=== PATIENT | female | born 1960 | race African-American/Black ===

== ENCOUNTER 2022-01-08 10:07 | Inpatient (IN) | payer OTHER ==
[2022-01-08 10:40] VITALS: BMI 24.5
[2022-01-08] MEDS ORDERED: MAGNESIUM CITRATE 300 ML BOTTLE PO PRN (11:37)
[2022-01-08] MEDS ORDERED: guaiFENesin 200 MG/10 ML 10 ML UNIT-DOSE CUPS PO PRN (11:37)
[2022-01-08] MEDS ORDERED: P-EPHED 60MG/TRIPROLIDI 2.5MG TABLET PO PRN (11:37)
[2022-01-08] MEDS ORDERED: MAGNESIUM HYDROX 2400MG/30ML ORAL SUSPENSION 30 ML CUP PO PRN (11:37)
[2022-01-08] MEDS ORDERED: NICOTINE 10 MG CARTRIDGE (INHALER) IH PRN (11:37)
[2022-01-08] MEDS ORDERED: LOPERAMIDE HCL 2 MG CAPSULE PO PRN (11:37)
[2022-01-08 16:35] LABS: CALCIUM 9.4 mg/dL (8.5-10.1)
[2022-01-08 16:38] LABS: ALBUMIN 3.8 g/dl (3.4-5.0)
[2022-01-08 16:40] LABS: BILIRUBIN,TOTAL 0.4 mg/dL (0.2-1); TOT PROT 7.1 g/dl (6.4-8.2)
[2022-01-08 16:45] LABS: HEMOGLOBIN 13.9 GM/dL (10.7-15.3); MCH 27.4 pg (25.7-33.7); MCHC 31.6 g/dl (32.0-36.0); MEAN CELL VOLUME 86.5 fl (80-96); MEAN PLT VOLUME 10.9 fl (7.5-11.1); PLATELET COUNT 201 10^3/uL (134-434); RBC 5.08 M/mm3 (3.60-5.2); RDW 15.3 % (11.6-15.6)
[2022-01-08 16:50] LABS: SYPHILIS W/ RPR CONF NON-REACTIVE (NONREACTIVE)
[2022-01-08] MEDS: hydrOXYzine PAMOATE 25 MG CAPSULE (FP) PO SCH ×3 (17:22→21:29)
[2022-01-08] MEDS: NICOTINE 7 MG/24 HOURS TOPICAL PATCH TD SCH (17:22)
[2022-01-08] MEDS: PRENATAL VITAMINS W/ FOLIC ACID TABLET (FP) PO SCH (17:22)
[2022-01-08] MEDS: metoPROLOL SUCCINATE 25 MG TAB.SR.24H (FP) PO SCH (17:33)
[2022-01-08] MEDS: ALBUTEROL SO4 HFA INHALER IH SCH ×2 (17:34→21:42)
[2022-01-08] MEDS: IBUPROFEN 400 MG TABLET (FP) PO PRN (21:29)
[2022-01-08] MEDS: THIAMINE HCL 100 MG TABLET (FP) PO SCH (21:29)
[2022-01-08] MEDS: MELATONIN 5 MG TABLETS PO SCH (21:43)
[2022-01-08] MEDS: BUDESONIDE/FORMETEROL FUMARATE 160/4.5 mcg INHALER IH SCH (21:43)
[2022-01-09] MEDS: hydrOXYzine PAMOATE 25 MG CAPSULE (FP) PO SCH ×2 (06:25→10:24)
[2022-01-09] MEDS: ALBUTEROL SO4 HFA INHALER IH SCH ×3 (06:30→12:19)
[2022-01-09] MEDS ORDERED: PATIENT'S OWN MEDICATION (NON-FORMULARY) (Fexofenadine Hcl [Allegra Allergy] 180 MG Tablet PO SCH (10:00)
[2022-01-09] MEDS: LORATADINE 10 MG TABLET PO SCH (10:23)
[2022-01-09] MEDS: metoPROLOL SUCCINATE 25 MG TAB.SR.24H (FP) PO SCH (10:23)
[2022-01-09] MEDS: PRENATAL VITAMINS W/ FOLIC ACID TABLET (FP) PO SCH (10:23)
[2022-01-09] MEDS: BUDESONIDE/FORMETEROL FUMARATE 160/4.5 mcg INHALER IH SCH ×2 (10:24→21:36)
[2022-01-09] MEDS: NICOTINE 7 MG/24 HOURS TOPICAL PATCH TD SCH (10:25)
[2022-01-09] MEDS: IBUPROFEN 400 MG TABLET (FP) PO PRN (12:16)
[2022-01-09] MEDS ORDERED: ALBUTEROL SO4 HFA INHALER IH PRN (12:28)
[2022-01-09] MEDS: ACETAMINOPHEN 325 MG TABLET (FP) PO PRN (20:18)
[2022-01-09] MEDS: THIAMINE HCL 100 MG TABLET (FP) PO SCH (21:35)
[2022-01-09] MEDS: MELATONIN 5 MG TABLETS PO SCH (21:36)
[2022-01-10] MEDS: PRENATAL VITAMINS W/ FOLIC ACID TABLET (FP) PO SCH (10:25)
[2022-01-10] MEDS: metoPROLOL SUCCINATE 25 MG TAB.SR.24H (FP) PO SCH (10:26)
[2022-01-10] MEDS: LORATADINE 10 MG TABLET PO SCH (10:26)
[2022-01-10] MEDS: NICOTINE 7 MG/24 HOURS TOPICAL PATCH TD SCH (10:26)
[2022-01-10] MEDS: amLODIPine BESYLATE 5 MG TABLET (FP) PO SCH (10:26)
[2022-01-10] MEDS: BUDESONIDE/FORMETEROL FUMARATE 160/4.5 mcg INHALER IH SCH ×2 (10:26→21:27)
[2022-01-10] MEDS: hydrOXYzine PAMOATE 25 MG CAPSULE (FP) PO PRN (10:28)
[2022-01-10] MEDS: ACETAMINOPHEN 325 MG TABLET (FP) PO PRN (10:29)
[2022-01-10] MEDS: BACLOFEN 10 MG TABLET (FP) PO PRN (14:54)
[2022-01-10] MEDS: GABAPENTIN 300 MG CAPSULE PO SCH ×2 (14:55→21:26)
[2022-01-10] MEDS: CROMOLYN SODIUM 4% OPHTH DROPS 10 ML BOTTLE OU SCH ×2 (17:04→21:28)
[2022-01-10] MEDS: THIAMINE HCL 100 MG TABLET (FP) PO SCH (21:26)
[2022-01-10] MEDS: MELATONIN 5 MG TABLETS PO SCH (21:27)
[2022-01-10] MEDS: CARBAMIDE PEROXIDE 6.5% OTIC 15 ML BOTTLE AS SCH (21:29)
[2022-01-10] MEDS: FAMOTIDINE 20 MG TABLET PO SCH (21:31)
[2022-01-11] MEDS: GABAPENTIN 300 MG CAPSULE PO SCH ×3 (06:20→21:33)
[2022-01-11] MEDS: FAMOTIDINE 20 MG TABLET PO SCH ×2 (10:12→21:33)
[2022-01-11] MEDS: metoPROLOL SUCCINATE 25 MG TAB.SR.24H (FP) PO SCH (10:12)
[2022-01-11] MEDS: BUDESONIDE/FORMETEROL FUMARATE 160/4.5 mcg INHALER IH SCH ×2 (10:12→21:34)
[2022-01-11] MEDS: PRENATAL VITAMINS W/ FOLIC ACID TABLET (FP) PO SCH (10:12)
[2022-01-11] MEDS: amLODIPine BESYLATE 5 MG TABLET (FP) PO SCH (10:12)
[2022-01-11] MEDS: LORATADINE 10 MG TABLET PO SCH (10:12)
[2022-01-11] MEDS: NICOTINE 7 MG/24 HOURS TOPICAL PATCH TD SCH (10:13)
[2022-01-11] MEDS: BACLOFEN 10 MG TABLET (FP) PO PRN (10:17)
[2022-01-11] MEDS: CARBAMIDE PEROXIDE 6.5% OTIC 15 ML BOTTLE AS SCH ×2 (10:18→21:35)
[2022-01-11] MEDS: CROMOLYN SODIUM 4% OPHTH DROPS 10 ML BOTTLE OU SCH ×4 (10:18→21:36)
[2022-01-11] MEDS: THIAMINE HCL 100 MG TABLET (FP) PO SCH (21:33)
[2022-01-11] MEDS: MELATONIN 5 MG TABLETS PO SCH (21:34)
[2022-01-11] MEDS: hydrOXYzine PAMOATE 25 MG CAPSULE (FP) PO PRN (21:35)
[2022-01-12] MEDS: GABAPENTIN 300 MG CAPSULE PO SCH ×3 (06:19→21:32)
[2022-01-12] MEDS: metoPROLOL SUCCINATE 25 MG TAB.SR.24H (FP) PO SCH (10:01)
[2022-01-12] MEDS: FAMOTIDINE 20 MG TABLET PO SCH ×2 (10:01→21:32)
[2022-01-12] MEDS: amLODIPine BESYLATE 5 MG TABLET (FP) PO SCH (10:01)
[2022-01-12] MEDS: LORATADINE 10 MG TABLET PO SCH (10:01)
[2022-01-12] MEDS: PRENATAL VITAMINS W/ FOLIC ACID TABLET (FP) PO SCH (10:01)
[2022-01-12] MEDS: BUDESONIDE/FORMETEROL FUMARATE 160/4.5 mcg INHALER IH SCH ×2 (10:02→21:34)
[2022-01-12] MEDS: NICOTINE 7 MG/24 HOURS TOPICAL PATCH TD SCH (10:02)
[2022-01-12] MEDS: CARBAMIDE PEROXIDE 6.5% OTIC 15 ML BOTTLE AS SCH ×2 (10:03→21:33)
[2022-01-12] MEDS: CROMOLYN SODIUM 4% OPHTH DROPS 10 ML BOTTLE OU SCH ×4 (10:05→21:33)
[2022-01-12] MEDS: THIAMINE HCL 100 MG TABLET (FP) PO SCH (21:32)
[2022-01-12] MEDS: QUEtiapine FUMARATE 50 MG TABLET PO SCH (21:32)
[2022-01-12] MEDS: hydrOXYzine PAMOATE 25 MG CAPSULE (FP) PO PRN (21:32)
[2022-01-12] MEDS ORDERED: SUVOREXANT 5 MG TABLET PO PRN (22:00)
[2022-01-13] MEDS: GABAPENTIN 300 MG CAPSULE PO SCH ×3 (06:12→21:50)
[2022-01-13] MEDS: PRENATAL VITAMINS W/ FOLIC ACID TABLET (FP) PO SCH (10:05)
[2022-01-13] MEDS: FAMOTIDINE 20 MG TABLET PO SCH ×2 (10:06→21:50)
[2022-01-13] MEDS: LORATADINE 10 MG TABLET PO SCH (10:06)
[2022-01-13] MEDS: metoPROLOL SUCCINATE 25 MG TAB.SR.24H (FP) PO SCH (10:06)
[2022-01-13] MEDS: NICOTINE 7 MG/24 HOURS TOPICAL PATCH TD SCH (10:06)
[2022-01-13] MEDS: QUEtiapine FUMARATE 50 MG TABLET PO SCH ×2 (10:06→21:50)
[2022-01-13] MEDS: BUDESONIDE/FORMETEROL FUMARATE 160/4.5 mcg INHALER IH SCH ×2 (10:06→22:18)
[2022-01-13] MEDS: amLODIPine BESYLATE 5 MG TABLET (FP) PO SCH (10:06)
[2022-01-13] MEDS: CROMOLYN SODIUM 4% OPHTH DROPS 10 ML BOTTLE OU SCH ×4 (10:07→22:16)
[2022-01-13] MEDS: CARBAMIDE PEROXIDE 6.5% OTIC 15 ML BOTTLE AS SCH ×2 (10:07→22:16)
[2022-01-13] MEDS: THIAMINE HCL 100 MG TABLET (FP) PO SCH (21:50)
[2022-01-13] MEDS: hydrOXYzine PAMOATE 25 MG CAPSULE (FP) PO PRN (21:50)
[2022-01-14] MEDS: GABAPENTIN 300 MG CAPSULE PO SCH ×3 (06:09→21:54)
[2022-01-14] MEDS: amLODIPine BESYLATE 5 MG TABLET (FP) PO SCH (10:13)
[2022-01-14] MEDS: LORATADINE 10 MG TABLET PO SCH (10:13)
[2022-01-14] MEDS: BUDESONIDE/FORMETEROL FUMARATE 160/4.5 mcg INHALER IH SCH ×2 (10:13→23:22)
[2022-01-14] MEDS: metoPROLOL SUCCINATE 25 MG TAB.SR.24H (FP) PO SCH (10:13)
[2022-01-14] MEDS: PRENATAL VITAMINS W/ FOLIC ACID TABLET (FP) PO SCH (10:13)
[2022-01-14] MEDS: CROMOLYN SODIUM 4% OPHTH DROPS 10 ML BOTTLE OU SCH ×4 (10:13→23:22)
[2022-01-14] MEDS: BACLOFEN 10 MG TABLET (FP) PO PRN (10:13)
[2022-01-14] MEDS: QUEtiapine FUMARATE 50 MG TABLET PO SCH ×2 (10:13→21:54)
[2022-01-14] MEDS: FAMOTIDINE 20 MG TABLET PO SCH ×2 (10:13→21:54)
[2022-01-14] MEDS: NICOTINE 7 MG/24 HOURS TOPICAL PATCH TD SCH (10:14)
[2022-01-14] MEDS: CARBAMIDE PEROXIDE 6.5% OTIC 15 ML BOTTLE AS SCH ×2 (10:15→23:22)
[2022-01-14] MEDS: THIAMINE HCL 100 MG TABLET (FP) PO SCH (21:54)
[2022-01-14] MEDS: hydrOXYzine PAMOATE 25 MG CAPSULE (FP) PO PRN (21:54)
[2022-01-15] MEDS: GABAPENTIN 300 MG CAPSULE PO SCH ×3 (06:05→21:37)
[2022-01-15] MEDS: FAMOTIDINE 20 MG TABLET PO SCH ×2 (10:50→21:37)
[2022-01-15] MEDS: BUDESONIDE/FORMETEROL FUMARATE 160/4.5 mcg INHALER IH SCH ×2 (10:50→21:37)
[2022-01-15] MEDS: QUEtiapine FUMARATE 50 MG TABLET PO SCH (10:50)
[2022-01-15] MEDS: amLODIPine BESYLATE 5 MG TABLET (FP) PO SCH (10:50)
[2022-01-15] MEDS: LORATADINE 10 MG TABLET PO SCH (10:51)
[2022-01-15] MEDS: metoPROLOL SUCCINATE 25 MG TAB.SR.24H (FP) PO SCH (10:51)
[2022-01-15] MEDS: PRENATAL VITAMINS W/ FOLIC ACID TABLET (FP) PO SCH (10:51)
[2022-01-15] MEDS: NICOTINE 7 MG/24 HOURS TOPICAL PATCH TD SCH (10:51)
[2022-01-15] MEDS: CROMOLYN SODIUM 4% OPHTH DROPS 10 ML BOTTLE OU SCH ×4 (10:52→21:42)
[2022-01-15] MEDS: CARBAMIDE PEROXIDE 6.5% OTIC 15 ML BOTTLE AS SCH (10:52)
[2022-01-15] MEDS: THIAMINE HCL 100 MG TABLET (FP) PO SCH (21:37)
[2022-01-15] MEDS: QUEtiapine FUMARATE 100 MG TABLET (FP) PO SCH (21:38)
[2022-01-15] MEDS: SUVOREXANT 5 MG TABLET PO PRN (21:39)
[2022-01-16] MEDS: GABAPENTIN 300 MG CAPSULE PO SCH ×3 (06:27→21:23)
[2022-01-16] MEDS: PRENATAL VITAMINS W/ FOLIC ACID TABLET (FP) PO SCH (10:13)
[2022-01-16] MEDS: CROMOLYN SODIUM 4% OPHTH DROPS 10 ML BOTTLE OU SCH ×4 (10:14→21:24)
[2022-01-16] MEDS: amLODIPine BESYLATE 5 MG TABLET (FP) PO SCH (10:14)
[2022-01-16] MEDS: NICOTINE 7 MG/24 HOURS TOPICAL PATCH TD SCH (10:14)
[2022-01-16] MEDS: BUDESONIDE/FORMETEROL FUMARATE 160/4.5 mcg INHALER IH SCH ×2 (10:14→21:23)
[2022-01-16] MEDS: LORATADINE 10 MG TABLET PO SCH (10:15)
[2022-01-16] MEDS: metoPROLOL SUCCINATE 25 MG TAB.SR.24H (FP) PO SCH (10:15)
[2022-01-16] MEDS: QUEtiapine FUMARATE 100 MG TABLET (FP) PO SCH ×2 (10:15→21:23)
[2022-01-16] MEDS: FAMOTIDINE 20 MG TABLET PO SCH ×2 (10:15→21:23)
[2022-01-16] MEDS: THIAMINE HCL 100 MG TABLET (FP) PO SCH (21:23)
[2022-01-16] MEDS: SUVOREXANT 5 MG TABLET PO PRN (21:26)
[2022-01-17] MEDS: GABAPENTIN 300 MG CAPSULE PO SCH ×3 (06:38→21:49)
[2022-01-17] MEDS: CROMOLYN SODIUM 4% OPHTH DROPS 10 ML BOTTLE OU SCH ×4 (10:25→22:06)
[2022-01-17] MEDS: QUEtiapine FUMARATE 100 MG TABLET (FP) PO SCH ×2 (10:25→21:49)
[2022-01-17] MEDS: metoPROLOL SUCCINATE 25 MG TAB.SR.24H (FP) PO SCH (10:25)
[2022-01-17] MEDS: PRENATAL VITAMINS W/ FOLIC ACID TABLET (FP) PO SCH (10:25)
[2022-01-17] MEDS: BUDESONIDE/FORMETEROL FUMARATE 160/4.5 mcg INHALER IH SCH ×2 (10:25→22:06)
[2022-01-17] MEDS: FAMOTIDINE 20 MG TABLET PO SCH ×2 (10:26→21:49)
[2022-01-17] MEDS: LORATADINE 10 MG TABLET PO SCH (10:26)
[2022-01-17] MEDS: amLODIPine BESYLATE 5 MG TABLET (FP) PO SCH (10:26)
[2022-01-17] MEDS: NICOTINE 7 MG/24 HOURS TOPICAL PATCH TD SCH (10:26)
[2022-01-17] MEDS: THIAMINE HCL 100 MG TABLET (FP) PO SCH (21:49)
[2022-01-17] MEDS: SUVOREXANT 5 MG TABLET PO PRN (21:52)
[2022-01-18] MEDS: GABAPENTIN 300 MG CAPSULE PO SCH ×3 (06:04→21:48)
[2022-01-18 07:09] VITALS: RESP 18
[2022-01-18] MEDS: amLODIPine BESYLATE 5 MG TABLET (FP) PO SCH (10:28)
[2022-01-18] MEDS: LORATADINE 10 MG TABLET PO SCH (10:28)
[2022-01-18] MEDS: FAMOTIDINE 20 MG TABLET PO SCH ×2 (10:28→21:49)
[2022-01-18] MEDS: metoPROLOL SUCCINATE 25 MG TAB.SR.24H (FP) PO SCH (10:28)
[2022-01-18] MEDS: PRENATAL VITAMINS W/ FOLIC ACID TABLET (FP) PO SCH (10:28)
[2022-01-18] MEDS: BUDESONIDE/FORMETEROL FUMARATE 160/4.5 mcg INHALER IH SCH ×2 (10:29→21:50)
[2022-01-18] MEDS: NICOTINE 7 MG/24 HOURS TOPICAL PATCH TD SCH (10:29)
[2022-01-18] MEDS: QUEtiapine FUMARATE 100 MG TABLET (FP) PO SCH ×2 (10:29→21:48)
[2022-01-18] MEDS: CROMOLYN SODIUM 4% OPHTH DROPS 10 ML BOTTLE OU SCH ×4 (10:31→22:13)
[2022-01-18] MEDS: hydrOXYzine PAMOATE 25 MG CAPSULE (FP) PO PRN (21:48)
[2022-01-18] MEDS: THIAMINE HCL 100 MG TABLET (FP) PO SCH (21:48)
[2022-01-18] MEDS: SUVOREXANT 5 MG TABLET PO PRN (21:50)
[2022-01-18] MEDS: MAG HYDROX/AL HYDROX/SIMETH 30 ML UNIT-DOSE CUP PO PRN (21:50)
[2022-01-19] MEDS: GABAPENTIN 300 MG CAPSULE PO SCH ×3 (06:27→21:27)
[2022-01-19] MEDS: BUDESONIDE/FORMETEROL FUMARATE 160/4.5 mcg INHALER IH SCH ×2 (10:24→21:27)
[2022-01-19] MEDS: CROMOLYN SODIUM 4% OPHTH DROPS 10 ML BOTTLE OU SCH ×4 (10:24→21:31)
[2022-01-19] MEDS: metoPROLOL SUCCINATE 25 MG TAB.SR.24H (FP) PO SCH (10:25)
[2022-01-19] MEDS: FAMOTIDINE 20 MG TABLET PO SCH ×2 (10:25→21:27)
[2022-01-19] MEDS: PRENATAL VITAMINS W/ FOLIC ACID TABLET (FP) PO SCH (10:25)
[2022-01-19] MEDS: QUEtiapine FUMARATE 100 MG TABLET (FP) PO SCH ×2 (10:25→21:27)
[2022-01-19] MEDS: LORATADINE 10 MG TABLET PO SCH (10:25)
[2022-01-19] MEDS: amLODIPine BESYLATE 5 MG TABLET (FP) PO SCH (10:25)
[2022-01-19] MEDS: NICOTINE 7 MG/24 HOURS TOPICAL PATCH TD SCH (10:25)
[2022-01-19] MEDS: MAG HYDROX/AL HYDROX/SIMETH 30 ML UNIT-DOSE CUP PO PRN ×2 (14:25→21:27)
[2022-01-19] MEDS: SUVOREXANT 5 MG TABLET PO PRN (21:27)
[2022-01-19] MEDS: THIAMINE HCL 100 MG TABLET (FP) PO SCH (21:27)
[2022-01-19] MEDS: BACLOFEN 10 MG TABLET (FP) PO PRN (21:31)
[2022-01-20] MEDS: GABAPENTIN 300 MG CAPSULE PO SCH ×3 (06:10→21:52)
[2022-01-20] MEDS: PRENATAL VITAMINS W/ FOLIC ACID TABLET (FP) PO SCH (10:13)
[2022-01-20] MEDS: QUEtiapine FUMARATE 100 MG TABLET (FP) PO SCH ×2 (10:14→21:52)
[2022-01-20] MEDS: FAMOTIDINE 20 MG TABLET PO SCH ×2 (10:14→21:52)
[2022-01-20] MEDS: LORATADINE 10 MG TABLET PO SCH (10:14)
[2022-01-20] MEDS: amLODIPine BESYLATE 5 MG TABLET (FP) PO SCH (10:14)
[2022-01-20] MEDS: CROMOLYN SODIUM 4% OPHTH DROPS 10 ML BOTTLE OU SCH ×4 (10:14→22:06)
[2022-01-20] MEDS: NICOTINE 7 MG/24 HOURS TOPICAL PATCH TD SCH (10:14)
[2022-01-20] MEDS: metoPROLOL SUCCINATE 25 MG TAB.SR.24H (FP) PO SCH (10:14)
[2022-01-20] MEDS: BUDESONIDE/FORMETEROL FUMARATE 160/4.5 mcg INHALER IH SCH ×2 (10:15→21:52)
[2022-01-20] MEDS: THIAMINE HCL 100 MG TABLET (FP) PO SCH (21:52)
[2022-01-20] MEDS: hydrOXYzine PAMOATE 25 MG CAPSULE (FP) PO PRN (21:52)
[2022-01-20] MEDS: BACLOFEN 10 MG TABLET (FP) PO PRN (21:52)
[2022-01-20] MEDS: SUVOREXANT 5 MG TABLET PO PRN (21:52)
[2022-01-21] MEDS: GABAPENTIN 300 MG CAPSULE PO SCH ×3 (06:16→21:41)
[2022-01-21] MEDS: metoPROLOL SUCCINATE 25 MG TAB.SR.24H (FP) PO SCH (10:41)
[2022-01-21] MEDS: QUEtiapine FUMARATE 100 MG TABLET (FP) PO SCH ×2 (10:41→21:40)
[2022-01-21] MEDS: FAMOTIDINE 20 MG TABLET PO SCH ×2 (10:41→21:40)
[2022-01-21] MEDS: LORATADINE 10 MG TABLET PO SCH (10:41)
[2022-01-21] MEDS: PRENATAL VITAMINS W/ FOLIC ACID TABLET (FP) PO SCH (10:41)
[2022-01-21] MEDS: amLODIPine BESYLATE 5 MG TABLET (FP) PO SCH (10:41)
[2022-01-21] MEDS: CROMOLYN SODIUM 4% OPHTH DROPS 10 ML BOTTLE OU SCH ×4 (10:42→21:41)
[2022-01-21] MEDS: NICOTINE 7 MG/24 HOURS TOPICAL PATCH TD SCH (10:43)
[2022-01-21] MEDS: BUDESONIDE/FORMETEROL FUMARATE 160/4.5 mcg INHALER IH SCH ×2 (10:44→21:39)
[2022-01-21] MEDS: BACLOFEN 10 MG TABLET (FP) PO PRN (21:40)
[2022-01-21] MEDS: THIAMINE HCL 100 MG TABLET (FP) PO SCH (21:41)
[2022-01-21] MEDS: MAG HYDROX/AL HYDROX/SIMETH 30 ML UNIT-DOSE CUP PO PRN (21:43)
[2022-01-21] MEDS ORDERED: SUVOREXANT 5 MG TABLET PO PRN (22:00)
[2022-01-22] MEDS: GABAPENTIN 300 MG CAPSULE PO SCH ×3 (06:13→21:49)
[2022-01-22] MEDS: LORATADINE 10 MG TABLET PO SCH (10:16)
[2022-01-22] MEDS: amLODIPine BESYLATE 5 MG TABLET (FP) PO SCH (10:16)
[2022-01-22] MEDS: metoPROLOL SUCCINATE 25 MG TAB.SR.24H (FP) PO SCH (10:16)
[2022-01-22] MEDS: QUEtiapine FUMARATE 100 MG TABLET (FP) PO SCH ×2 (10:16→21:49)
[2022-01-22] MEDS: FAMOTIDINE 20 MG TABLET PO SCH ×2 (10:16→21:49)
[2022-01-22] MEDS: BUDESONIDE/FORMETEROL FUMARATE 160/4.5 mcg INHALER IH SCH ×2 (10:16→22:03)
[2022-01-22] MEDS: PRENATAL VITAMINS W/ FOLIC ACID TABLET (FP) PO SCH (10:17)
[2022-01-22] MEDS: CROMOLYN SODIUM 4% OPHTH DROPS 10 ML BOTTLE OU SCH ×4 (10:17→22:03)
[2022-01-22] MEDS: NICOTINE 7 MG/24 HOURS TOPICAL PATCH TD SCH (10:17)
[2022-01-22] MEDS: hydrOXYzine PAMOATE 25 MG CAPSULE (FP) PO PRN (21:49)
[2022-01-22] MEDS: THIAMINE HCL 100 MG TABLET (FP) PO SCH (21:49)
[2022-01-23] MEDS: GABAPENTIN 300 MG CAPSULE PO SCH ×3 (06:07→21:34)
[2022-01-23] MEDS: QUEtiapine FUMARATE 100 MG TABLET (FP) PO SCH ×2 (10:09→21:34)
[2022-01-23] MEDS: amLODIPine BESYLATE 5 MG TABLET (FP) PO SCH (10:09)
[2022-01-23] MEDS: metoPROLOL SUCCINATE 25 MG TAB.SR.24H (FP) PO SCH (10:09)
[2022-01-23] MEDS: FAMOTIDINE 20 MG TABLET PO SCH ×2 (10:09→21:34)
[2022-01-23] MEDS: PRENATAL VITAMINS W/ FOLIC ACID TABLET (FP) PO SCH (10:09)
[2022-01-23] MEDS: LORATADINE 10 MG TABLET PO SCH (10:09)
[2022-01-23] MEDS: NICOTINE 7 MG/24 HOURS TOPICAL PATCH TD SCH (10:10)
[2022-01-23] MEDS: BUDESONIDE/FORMETEROL FUMARATE 160/4.5 mcg INHALER IH SCH ×2 (10:10→21:33)
[2022-01-23] MEDS: CROMOLYN SODIUM 4% OPHTH DROPS 10 ML BOTTLE OU SCH ×4 (10:10→21:38)
[2022-01-23] MEDS: THIAMINE HCL 100 MG TABLET (FP) PO SCH (21:34)
[2022-01-23] MEDS: hydrOXYzine PAMOATE 25 MG CAPSULE (FP) PO PRN (21:35)
[2022-01-24] MEDS: GABAPENTIN 300 MG CAPSULE PO SCH ×3 (06:02→22:16)
[2022-01-24] MEDS: CROMOLYN SODIUM 4% OPHTH DROPS 10 ML BOTTLE OU SCH ×4 (10:31→22:18)
[2022-01-24] MEDS: amLODIPine BESYLATE 5 MG TABLET (FP) PO SCH (10:31)
[2022-01-24] MEDS: metoPROLOL SUCCINATE 25 MG TAB.SR.24H (FP) PO SCH (10:31)
[2022-01-24] MEDS: FAMOTIDINE 20 MG TABLET PO SCH ×2 (10:31→22:17)
[2022-01-24] MEDS: BUDESONIDE/FORMETEROL FUMARATE 160/4.5 mcg INHALER IH SCH ×2 (10:31→22:18)
[2022-01-24] MEDS: PRENATAL VITAMINS W/ FOLIC ACID TABLET (FP) PO SCH (10:32)
[2022-01-24] MEDS: LORATADINE 10 MG TABLET PO SCH (10:32)
[2022-01-24] MEDS: QUEtiapine FUMARATE 100 MG TABLET (FP) PO SCH ×2 (10:32→22:16)
[2022-01-24] MEDS: NICOTINE 7 MG/24 HOURS TOPICAL PATCH TD SCH (10:33)
[2022-01-24] MEDS: SUVOREXANT 5 MG TABLET PO PRN (22:16)
[2022-01-24] MEDS: THIAMINE HCL 100 MG TABLET (FP) PO SCH (22:16)
[2022-01-24] MEDS: hydrOXYzine PAMOATE 25 MG CAPSULE (FP) PO PRN (22:17)
[2022-01-25] MEDS: GABAPENTIN 300 MG CAPSULE PO SCH ×3 (06:15→21:56)
[2022-01-25] MEDS: LORATADINE 10 MG TABLET PO SCH (10:33)
[2022-01-25] MEDS: amLODIPine BESYLATE 5 MG TABLET (FP) PO SCH (10:33)
[2022-01-25] MEDS: FAMOTIDINE 20 MG TABLET PO SCH ×2 (10:33→21:56)
[2022-01-25] MEDS: PRENATAL VITAMINS W/ FOLIC ACID TABLET (FP) PO SCH (10:33)
[2022-01-25] MEDS: BUDESONIDE/FORMETEROL FUMARATE 160/4.5 mcg INHALER IH SCH ×2 (10:33→21:57)
[2022-01-25] MEDS: CROMOLYN SODIUM 4% OPHTH DROPS 10 ML BOTTLE OU SCH ×4 (10:33→21:57)
[2022-01-25] MEDS: metoPROLOL SUCCINATE 25 MG TAB.SR.24H (FP) PO SCH (10:33)
[2022-01-25] MEDS: QUEtiapine FUMARATE 100 MG TABLET (FP) PO SCH ×2 (10:33→21:56)
[2022-01-25] MEDS: NICOTINE 7 MG/24 HOURS TOPICAL PATCH TD SCH (10:34)
[2022-01-25] MEDS: SUVOREXANT 5 MG TABLET PO PRN (21:56)
[2022-01-25] MEDS: hydrOXYzine PAMOATE 25 MG CAPSULE (FP) PO PRN (21:56)
[2022-01-25] MEDS: THIAMINE HCL 100 MG TABLET (FP) PO SCH (21:56)
[2022-01-26] MEDS: GABAPENTIN 300 MG CAPSULE PO SCH ×3 (06:09→21:40)
[2022-01-26] MEDS: BUDESONIDE/FORMETEROL FUMARATE 160/4.5 mcg INHALER IH SCH ×2 (10:50→21:41)
[2022-01-26] MEDS: PRENATAL VITAMINS W/ FOLIC ACID TABLET (FP) PO SCH (10:50)
[2022-01-26] MEDS: amLODIPine BESYLATE 5 MG TABLET (FP) PO SCH (10:51)
[2022-01-26] MEDS: CROMOLYN SODIUM 4% OPHTH DROPS 10 ML BOTTLE OU SCH ×4 (10:51→21:41)
[2022-01-26] MEDS: QUEtiapine FUMARATE 100 MG TABLET (FP) PO SCH ×2 (10:51→21:40)
[2022-01-26] MEDS: FAMOTIDINE 20 MG TABLET PO SCH ×2 (10:51→21:41)
[2022-01-26] MEDS: metoPROLOL SUCCINATE 25 MG TAB.SR.24H (FP) PO SCH (10:51)
[2022-01-26] MEDS: LORATADINE 10 MG TABLET PO SCH (10:51)
[2022-01-26] MEDS: NICOTINE 7 MG/24 HOURS TOPICAL PATCH TD SCH (10:51)
[2022-01-26] MEDS: BACLOFEN 10 MG TABLET (FP) PO PRN ×2 (10:53→21:41)
[2022-01-26] MEDS: THIAMINE HCL 100 MG TABLET (FP) PO SCH (21:40)
[2022-01-27] MEDS: GABAPENTIN 300 MG CAPSULE PO SCH ×3 (06:01→21:48)
[2022-01-27] MEDS: BUDESONIDE/FORMETEROL FUMARATE 160/4.5 mcg INHALER IH SCH ×2 (10:30→21:49)
[2022-01-27] MEDS: LORATADINE 10 MG TABLET PO SCH (10:30)
[2022-01-27] MEDS: PRENATAL VITAMINS W/ FOLIC ACID TABLET (FP) PO SCH (10:30)
[2022-01-27] MEDS: CROMOLYN SODIUM 4% OPHTH DROPS 10 ML BOTTLE OU SCH ×4 (10:30→21:49)
[2022-01-27] MEDS: metoPROLOL SUCCINATE 25 MG TAB.SR.24H (FP) PO SCH (10:30)
[2022-01-27] MEDS: FAMOTIDINE 20 MG TABLET PO SCH ×2 (10:30→21:48)
[2022-01-27] MEDS: amLODIPine BESYLATE 5 MG TABLET (FP) PO SCH (10:30)
[2022-01-27] MEDS: QUEtiapine FUMARATE 100 MG TABLET (FP) PO SCH ×2 (10:30→21:48)
[2022-01-27] MEDS: hydrOXYzine PAMOATE 25 MG CAPSULE (FP) PO PRN ×2 (10:31→21:48)
[2022-01-27] MEDS: NICOTINE 7 MG/24 HOURS TOPICAL PATCH TD SCH (12:24)
[2022-01-27] MEDS: THIAMINE HCL 100 MG TABLET (FP) PO SCH (21:48)
[2022-01-27] MEDS ORDERED: SUVOREXANT 5 MG TABLET PO PRN (22:00)
[2022-01-28] MEDS: GABAPENTIN 300 MG CAPSULE PO SCH ×3 (05:56→21:55)
[2022-01-28 07:31] VITALS: TEMP 97.6
[2022-01-28] MEDS: PRENATAL VITAMINS W/ FOLIC ACID TABLET (FP) PO SCH (10:20)
[2022-01-28] MEDS: hydrOXYzine PAMOATE 25 MG CAPSULE (FP) PO PRN ×3 (10:21→21:55)
[2022-01-28] MEDS: metoPROLOL SUCCINATE 25 MG TAB.SR.24H (FP) PO SCH (10:21)
[2022-01-28] MEDS: BUDESONIDE/FORMETEROL FUMARATE 160/4.5 mcg INHALER IH SCH ×2 (10:21→23:11)
[2022-01-28] MEDS: CROMOLYN SODIUM 4% OPHTH DROPS 10 ML BOTTLE OU SCH ×4 (10:21→23:11)
[2022-01-28] MEDS: LORATADINE 10 MG TABLET PO SCH (10:21)
[2022-01-28] MEDS: NICOTINE 7 MG/24 HOURS TOPICAL PATCH TD SCH (10:21)
[2022-01-28] MEDS: QUEtiapine FUMARATE 100 MG TABLET (FP) PO SCH ×2 (10:21→21:55)
[2022-01-28] MEDS: amLODIPine BESYLATE 5 MG TABLET (FP) PO SCH (10:21)
[2022-01-28] MEDS: FAMOTIDINE 20 MG TABLET PO SCH ×2 (10:21→21:55)
[2022-01-28] MEDS: THIAMINE HCL 100 MG TABLET (FP) PO SCH (21:55)
[2022-01-28] MEDS: BACLOFEN 10 MG TABLET (FP) PO PRN (21:55)
[2022-01-29] MEDS: GABAPENTIN 300 MG CAPSULE PO SCH (06:22)
[2022-01-29] MEDS: BUDESONIDE/FORMETEROL FUMARATE 160/4.5 mcg INHALER IH SCH (10:11)
[2022-01-29] MEDS: CROMOLYN SODIUM 4% OPHTH DROPS 10 ML BOTTLE OU SCH (10:11)
[2022-01-29] MEDS: QUEtiapine FUMARATE 100 MG TABLET (FP) PO SCH (10:12)
[2022-01-29] MEDS: LORATADINE 10 MG TABLET PO SCH (10:12)
[2022-01-29] MEDS: metoPROLOL SUCCINATE 25 MG TAB.SR.24H (FP) PO SCH (10:12)
[2022-01-29] MEDS: FAMOTIDINE 20 MG TABLET PO SCH (10:12)
[2022-01-29] MEDS: amLODIPine BESYLATE 5 MG TABLET (FP) PO SCH (10:12)
[2022-01-29] MEDS: hydrOXYzine PAMOATE 25 MG CAPSULE (FP) PO PRN (10:12)
[2022-01-29] MEDS: NICOTINE 7 MG/24 HOURS TOPICAL PATCH TD SCH (10:14)
[2022-01-29] MEDS: PRENATAL VITAMINS W/ FOLIC ACID TABLET (FP) PO SCH (10:14)
[2022-01-29 11:18] VITALS: BP 128/82; PULSE 80
== END 2022-01-29 10:25 | disposition home or self-care (01) | DRG 772 ==
LOC: YASAS 10:07 → Y5N 14:41
PROVIDERS: ADMIT Allergy & Immunology; ATTEND Surgery
PROC: HZ42ZZZ Group Counseling for Substance Abuse Treatment, Cognitive-Behavioral (ICD-10-PCS; principal; 2022-01-08)
DX: F14.20 Cocaine dependence, uncomplicated (principal); F10.10 Alcohol abuse, uncomplicated; F12.20 Cannabis dependence, uncomplicated; F17.210 Nicotine dependence, cigarettes, uncomplicated; F41.9 Anxiety disorder, unspecified; F32.A Depression, unspecified; G47.00 Insomnia, unspecified; I10 Essential (primary) hypertension; J45.909 Unspecified asthma, uncomplicated; K21.9 Gastro-esophageal reflux disease without esophagitis; Z28.310 Unvaccinated for COVID-19; Z28.9 Immunization not carried out for unspecified reason; Z88.0 Allergy status to penicillin
CPT/HCPCS: 36415; 80053; 82962; 85027; 86780; 86803; 93005; 93010; 99282-25; C9803-CS; J0475; U0003; U0005